=== PATIENT | female | born 1985 | race Caucasian/White ===

== ENCOUNTER 2020-07-07 22:26 | Emergency (ER) | payer BC, SELFPAY ==
[2020-07-07 22:28] VITALS: BP 148/96; PULSE 72; RESP 18; TEMP 36.8; O2SAT 97
--- NOTE | 2020-07-07 22:30 | DI.RAD_ITS ---
EXAM: XR FINGER LT INDEX CLINICAL HISTORY: trauma. TECHNIQUE: 2D digital imaging was performed. COMPARISON: No exams were available for comparison FINDINGS: Is a comminuted predominantly oblique fracture the in the distal half of the middle phalanx of the le ft index finger. Minimal dorsal angulation. Does not appear to involve the distal interphalangeal j oint. No radiopaque foreign body. Skin laceration noted. IMPRESSION: Comminuted minimally angulated fracture of the distal half of the middle phalanx of the index finger. DATA REPOSITORY: RADIATION DOSE DELIVERED:
--- NOTE | 2020-07-07 22:31 | W.ED.GENAD ---
Discharge Plan Discharge Details Chief Complaint: Laceration Primary Care Provider: Cyrus Rosen ED Provider: Tamiko Gomez Home Meds and New Rx's Prescriptions: No Action epinephrine [EpiPen 2-René] 0.3 MG/0.3 ML auto-injector 0.3 mg IM PRN RF: 0 fluoxetine 20 MG capsule 20 mg PO DAILY Qty: 90 RF: 4 terconazole [Terazol 7] 45 GM cream 45 gm VG HS Qty: 1 RF: 0 fluconazole [Diflucan] 150 MG tablet 150 mg PO ONCE Qty: 1 RF: 0 amoxicillin 500 MG tablet 500 mg PO TID Qty: 15 RF: 0 clotrimazole-betamethasone [Lotrisone] 15 GM cream 15 gm Topical BID Qty: 1 RF: 0 HPI General Mode of arrival: ambulatory. Date/Time Provider Initiated Documentation: 07/07/20 22:27. Limitations to Documentation: no limitations. Information obtained by: patient and RN notes reviewed. Related Data Home Medications Medication Instructions Recorded Confirmed epinephrine [EpiPen 2-René] 0.3 mg IM PRN 02/24/16 05/01/17 fluoxetine 20 mg PO DAILY #90 tab-cap 06/16/16 fluconazole [Diflucan] 150 mg PO ONCE #1 tab-cap 09/30/17 terconazole [Terazol 7] 45 gm VG HS #1 tube 09/30/17 amoxicillin 500 mg PO TID #15 tab-cap 11/04/17 clotrimazole-betamethasone 15 gm TOPICAL BID #1 tube 11/04/17 [Lotrisone Cream] Previous Rx's Medication Instructions Recorded fluconazole [Diflucan] 150 mg PO ONCE #1 tab-cap 09/30/17 terconazole [Terazol 7] 45 gm VG HS #1 tube 09/30/17 amoxicillin 500 mg PO TID #15 tab-cap 11/04/17 clotrimazole-betamethasone 15 gm TOPICAL BID #1 tube 11/04/17 [Lotrisone Cream] Allergies Allergy/AdvReac Type Severity Reaction Status Date / Time venom-honey bee Allergy FACIAL Unverified 11/04/17 14:00 SWELLING [facility] Surgical History (Updated 08/15/18 @ 22:57 by Janene Quinteros) Oral surgery: wisdom teeth. Family History Grandfather Heart disease Grandmother Breast cancer Maternal Cousin Breast cancer Grandfather Liver cancer Other Personal history of malignant neoplasm Social History Smoking/Tobacco Use Status: Current every day Smoking risk assessment performed?: Yes Alcohol Intake: current Alcohol Intake frequency: a few times a month Drug use: Daily Substance use type: marijuana Do you feel safe at home: Yes Do you feel safe in your relationship?: Yes
--- NOTE | 2020-07-07 22:32 | ED.GENADUL_ITS ---
Discharge Plan Disposition Patient Disposition: HOME Condition: Stable Discharge Details Clinical Impression: Open fracture of distal phalanx of left index finger Primary Care Provider: Cyrus Rosen ED Provider: Tamiko Gomez Home Meds and New Rx's Prescriptions: New cephalexin 500 mg capsule 500 mg PO QID Qty: 20 RF: 0 Continued epinephrine [EpiPen 2-René] 0.3 MG/0.3 ML auto-injector 0.3 mg IM PRN RF: 0 fluoxetine 20 MG capsule 20 mg PO DAILY Qty: 90 RF: 4 Discontinued terconazole [Terazol 7] 45 GM cream 45 gm VG HS Qty: 1 RF: 0 fluconazole [Diflucan] 150 MG tablet 150 mg PO ONCE Qty: 1 RF: 0 amoxicillin 500 MG tablet 500 mg PO TID Qty: 15 RF: 0 clotrimazole-betamethasone [Lotrisone] 15 GM cream 15 gm Topical BID Qty: 1 RF: 0 Discharge Instructions Instructions: Laceration (DC), Finger Fracture (ED) Additional Instructions: Keep your dressing clean and dry until your follow-up appointment with orthopedics on You can keep your finger elevated to reduce throbbing and swelling of possible throughout the day Take acetaminophen 650 mg 4 times daily if needed for pain can add ibuprofen 600 mg with food 4 times daily alternating the 2 if needed Return here sooner for new or worsening issues Your tetanus was updated in January 2016. Start cephalexin 500 mg 4 times daily tomorrow morning and complete entire course. Referrals: Rio Lafleur MD [ [facility] STAFF PHYSICIAN] - (Call Wednesday for a follow up appointment on July) Discharge Data Discharge Date/Time-TO BE ENTERED AT DEPARTURE: 07/08/20 00:30 Medical Decision Making Laceration from crush injury sustained on the interior door. Tendon sheath is disrupted but tendon appears intact. Full range of motion and strength to finger. Wound anesthetized using let, digital block with 1% lidocaine with good effect, wound is irrigated with copious amounts of normal saline no debris or foreign body noted, wound is closed using 10 sutures. It is well approximated Vaseline gauze and dry sterile dressing applied. Finger splint applied. Case was discussed with Dr. Lafleur who will see patient in follow-up outpatient Medical Records Medical records reviewed: Yes I reviewed the patient's medical records. HPI General Date/Time Provider Initiated Documentation: 07/07/20 22:27 . Limitations to Documentation: no limitations . Information obtained by: patient . HPI Narrative: Finger slammed in the anterior door, isolated injury to left index finger. jagged laceration to PIP. Related Data Home Medications Medication Instructions Recorded Confirmed epinephrine [EpiPen 2-René] 0.3 mg IM PRN 02/24/16 05/01/17 fluoxetine 20 mg PO DAILY #90 tab-cap 06/16/16 cephalexin 500 mg PO QID #20 cap 07/07/20 Previous Rx's Medication Instructions Recorded cephalexin 500 mg PO QID #20 cap 07/07/20 Allergies Allergy/AdvReac Type Severity Reaction Status Date / Time venom-honey bee Allergy FACIAL Unverified 11/04/17 14:00 SWELLING General Stated Complaint: Laceration STEFFI: 3 Review of Systems Musculoskeletal Musculoskeletal: Denies deformity, Reports arthralgias and Reports joint swelling Integumentary/Breasts Skin/Breast: Reports lesions Hematologic/Lymphatic Hematologic/Lymphatic: Denies easy bleeding and Denies easy bruising [facility] Surgical History (Updated 08/15/18 @ 22:57 by Janene Quinteros) Oral surgery: wisdom teeth. Family History Grandfather Heart disease Grandmother Breast cancer Maternal Cousin Breast cancer Grandfather Liver cancer Other Personal history of malignant neoplasm Social History Smoking/Tobacco Use Status: Current every day Smoking risk assessment performed?: Yes Alcohol Intake: current Alcohol Intake frequency: a few times a month Drug use: Daily Substance use type: marijuana Do you feel safe at home: Yes Do you feel safe in your relationship?: Yes Exam Const General: cooperative, acute distress moderate and anxious (crying) Nutritional Appearance: average body habitus Cardio Rate: regular rate Rhythm: regular rhythm (radial) Skin Trauma: laceration (left index finger, jagged lac over palmar side of PIP left index) and other (tendon sheath disrupted, tendon appears intact, able to fully bend finger) Other: able to fully bend finger, holding against resistance. bleeding con trolled. Neuro General: patient alert, patient awake and other (appears mildly intoxicated) Cognition: normal cognition Speech: speech normal Extrem Left upper extremity: hand Details: abnormal to inspection (lacerated left index), tendon exam abnormal (sheath lacerated), tenderness, swelling, abrasion (avulsion of skin, on dorsal side of finger. ) Location: of the 2nd digit, laceration and ecchymosis Course Vital Signs Vital signs: Vital Signs Temperature 36.8 C 07/07/20 22:28 Pulse 72 07/07/20 22:28 Respiratory Rate 18 07/07/20 22:28 Blood Pressure 148/96 H 07/07/20 22:28 Pulse Oximetry 97 07/07/20 22:28 Temperature 36.8 C 07/07/20 22:28 Temperature Source Temporal Artery Scan 07/07/20 22:28 Pulse 72 07/07/20 22:28 Respiratory Rate 18 07/07/20 22:28 Blood Pressure 148/96 H 07/07/20 22:28 Blood Pressure Position Sitting 07/07/20 22:28 Pulse Oximetry 97 07/07/20 22:28 Oxygen Delivery Method Room Air 07/07/20 22:28 Oxygen Flow Rate 0 07/07/20 22:28 Pain Level 8 07/07/20 22:28 Procedures Laceration Laceration 1: Site: hand (Index finger first PIP) Side (If applicable): left Size (cm): 4 Description: irregular Depth: involves tendon Local Anesthetic: Lidocaine 1% Amount of anesthesia used (mL): 6 Pre-repair: wound explored and irrigated extensively Skin layer closed with: nylon Size (cm): 4-0 Number of sutures: 10 Technique: simple, interrupted
[2020-07-07] MEDS: Lidocaine 1% Multi-Dose 50 ML VIAL (22:48)
[2020-07-07] MEDS: Lidocaine/Epinephri/Tetracaine Topical Gel 3 ML (22:49)
--- NOTE | 2020-07-07 22:57 | DI.VRAD_ITS ---
PROCEDURE INFORMATION: Exam: XR Left Finger(s) Exam date and time: 07/07/2020 10:32 PM Age: 35 years old Clinical indication: Injury or trauma; Other: Finger shut in door; Blunt trauma (contusions or hematomas); Left; Injury date: 07/07/20; Injury details: Shut index finger in door TECHNIQUE: Imaging protocol: XR Left fingers. Views: Minimum 2 views. COMPARISON: No relevant prior studies available. FINDINGS: Bones/joints: Comminuted but essentially nondisplaced minimally angulated fracture of the distal aspect of the middle phalanx of the index finger. Soft tissues: Soft tissue gas adjacent to the metacarpophalangeal joint compatible with soft tissue laceration. IMPRESSION: 1. Comminuted but essentially nondisplaced minimally angulated fracture of the distal aspect of the middle phalanx of the index finger. 2. Soft tissue gas adjacent to the metacarpophalangeal joint compatible with soft tissue laceration. Dictated and Authenticated by: Gautam Madison MD. Ordering:DOUGLAS Morrison MD
[2020-07-07] MEDS: ceFAZolin 1 GM/50 ML BAG IVPB (23:53)
[2020-07-08] MEDS: Ketorolac 30 MG/ML VIAL IVP (00:20)
[2020-07-08 00:29] VITALS: BP 103/75; PULSE 71; RESP 16; O2SAT 97
== END 2020-07-08 00:30 | disposition home or self-care (01) ==
PROVIDERS: Emergency Provider Nurse Practitioner Acute Care; PCP Nurse Practitioner Family
DX: S67.191A Crushing injury of left index finger, initial encounter (principal); S62.621B Displaced fracture of middle phalanx of left index finger, initial encounter for open fracture; W23.0XXA Caught, crushed, jammed, or pinched between moving objects, initial encounter
CPT/HCPCS: 12002; 26720; 96365; 96375; 99282; 73140; 99281; J0690; J1885

== ENCOUNTER 2020-07-09 18:56 | Emergency (ER) | payer BC, SELFPAY ==
--- NOTE | 2020-07-09 19:09 | ED.GENADUL_ITS ---
Discharge Plan Disposition Patient Disposition: HOME Condition: Stable Discharge Details Clinical Impression: Visit for wound check Primary Care Provider: Cyrus Rosen ED Provider: Tamiko Gomez Home Meds and New Rx's Prescriptions: No Action epinephrine [EpiPen 2-René] 0.3 MG/0.3 ML auto-injector 0.3 mg IM PRN RF: 0 fluoxetine 20 MG capsule 20 mg PO DAILY Qty: 90 RF: 4 cephalexin 500 mg capsule 500 mg PO QID Qty: 20 RF: 0 Discharge Instructions Instructions: Facial Laceration (ED) Additional Instructions: Keep wound clean and dry Continue to elevate finger to reduce swelling and pain Continue [id number] pain medications as previously prescribed Wear splint to protect Referrals: Rio Lafleur MD [ [facility] STAFF PHYSICIAN] - (Keep scheduled follow-up appointment on ) Discharge Data Discharge Date/Time-TO BE ENTERED AT DEPARTURE: 07/09/20 19:55 Medical Decision Making Wound check shows no obvious signs of infection skin is macerated at laceration site but wound edges are approximated and sutures intact Wound care per nursing bacitracin dry sterile dressing applied HPI General Mode of arrival: ambulatory . Date/Time Provider Initiated Documentation: 07/09/20 19:09 . Limitations to Documentation: no limitations . Information obtained by: patient . HPI Narrative: Patient presents for wound check of her left index finger which was sutured on Wednesday following a traumatic injury. She denies any fevers or drainage she states the swelling persist and the dressing felt tight so she loosened it and noticed that the skin at the laceration site was white . She called for advice and was advised to come to the emergency department if she was concerned and wanted evaluation. She has no other complaints Related Data Home Medications Medication Instructions Recorded Confirmed epinephrine [EpiPen 2-René] 0.3 mg IM PRN 02/24/16 05/01/17 fluoxetine 20 mg PO DAILY #90 tab-cap 06/16/16 cephalexin 500 mg PO QID #20 cap 07/07/20 Previous Rx's Medication Instructions Recorded cephalexin 500 mg PO QID #20 cap 07/07/20 Allergies Allergy/AdvReac Type Severity Reaction Status Date / Time venom-honey bee Allergy FACIAL Unverified 11/04/17 14:00 SWELLING General STEFIF: 3 Review of Systems All systems reviewed & are unremarkable except as noted in HPI and below PFSH Surgical History (Updated 08/15/18 @ 22:57 by Janene Quinteros) Oral surgery: wisdom teeth. Family History Grandfather Heart disease Grandmother Breast cancer Maternal Cousin Breast cancer Grandfather Liver cancer Other Personal history of malignant neoplasm Social History Smoking/Tobacco Use Status: Current every day Smoking risk assessment performed?: Yes Alcohol Intake: current Alcohol Intake frequency: a few times a month Drug use: Daily Substance use type: marijuana Do you feel safe at home: Yes Do you feel safe in your relationship?: Yes Exam Skin Lesions: other Rashes: no rashes Other: Left index finger remains edematous with ecchymosis. Sensation is intact distally tip but does mary with good cap refill, suture line with macerated skin wound is approximated and sutures are intact
[2020-07-09 19:17] VITALS: BP 141/70; PULSE 86; RESP 16; TEMP 36.3; O2SAT 97
[2020-07-09 19:54] VITALS: BP 141/70; PULSE 86; RESP 16; TEMP 36.3; O2SAT 97
== END 2020-07-09 19:55 | disposition home or self-care (01) ==
LOC: ER 19:17
PROVIDERS: Emergency Provider Nurse Practitioner Acute Care; PCP Nurse Practitioner Family
DX: S67.191A Crushing injury of left index finger, initial encounter (principal); W23.0XXA Caught, crushed, jammed, or pinched between moving objects, initial encounter; Z48.01 Encounter for change or removal of surgical wound dressing; R60.0 Localized edema

== ENCOUNTER 2020-07-11 11:03 | Outpatient (CLI) | payer BC, SELFPAY ==
--- NOTE | 2020-07-11 09:09 | DI.RAD_ITS ---
EXAM: XR FINGER LT INDEX CLINICAL HISTORY: LIF fracture. TECHNIQUE: 2D digital imaging was performed. COMPARISON: CR,XR XR FINGER LT INDEX from 07/07/2020 FINDINGS: Thin fracture lines at the level of the neck of the middle phalanx of the index finger again noted. No displacement. No radiopaque foreign body. No osseous lesions. IMPRESSION: Two transverse fracture lines at the neck of the middle phalanx, nondisplaced. DATA REPOSITORY: RADIATION DOSE DELIVERED:
== END 2020-07-11 11:23 ==
PROVIDERS: PCP Nurse Practitioner Family; Referring Provider Nurse Practitioner Family; Visit Provider Physician Assistant
DX: S62.603A Fracture of unspecified phalanx of left middle finger, initial encounter for closed fracture (principal)
CPT/HCPCS: 73140

== ENCOUNTER 2020-07-25 11:02 | Outpatient (CLI) | payer BC, SELFPAY ==
--- NOTE | 2020-07-25 10:00 | DI.RAD_ITS ---
EXAM: XR FINGER LT INDEX EXAM DATE/TIME: CLINICAL HISTORY: LIF fx. TECHNIQUE: 2D digital imaging was performed. COMPARISON: Comparison 07/11/2020 FINDINGS: BONES: There has been no change in alignment of the nondisplaced fracture involving the middle phalan x of the left index finger. No new fracture or dislocation is present. JOINTS: No dislocation is present. SOFT TISSUE: Normal. IMPRESSION: Stable fracture of the middle phalanx of the left index finger. DATA REPOSITORY: RADIATION DOSE DELIVERED:
== END 2020-07-25 11:22 ==
PROVIDERS: PCP Nurse Practitioner Family; Visit Provider Physician Assistant
DX: S62.621A Displaced fracture of middle phalanx of left index finger, initial encounter for closed fracture (principal)
CPT/HCPCS: 73140

== ENCOUNTER 2020-08-15 10:03 | Outpatient (CLI) | payer BC, SELFPAY ==
--- NOTE | 2020-08-15 09:30 | DI.RAD_ITS ---
EXAM: XR FINGER LT INDEX CLINICAL HISTORY: f/u of left index finger fracture TECHNIQUE: COMPARISON: CR XR FINGER LT INDEX from 07/25/2020 FINDINGS: Three views were obtained and show previously described fracture of middle phalanx of the index finge r with no gross interval change in alignment in comparison with previous films of July 25. IMPRESSION: RADIATION DOSE DELIVERED: Total DLP
== END 2020-08-15 10:23 ==
PROVIDERS: PCP Nurse Practitioner Family; Referring Provider Nurse Practitioner Family; Visit Provider Physician Assistant
DX: S62.623A Displaced fracture of middle phalanx of left middle finger, initial encounter for closed fracture (principal)
CPT/HCPCS: 73140

== ENCOUNTER 2020-11-05 10:14 | Outpatient (CLI) | payer BC, SELFPAY ==
--- NOTE | 2020-11-05 09:45 | DI.RAD_ITS ---
EXAM: XR FINGER LT INDEX CLINICAL HISTORY: follow up TECHNIQUE: COMPARISON: CR XR FINGER LT INDEX from 08/15/2020 FINDINGS: Three views were obtained and show previously described nondisplaced fracture of the middle phalanx o f the index finger, no gross interval change in alignment and there appears to be some progression of healing since the previous examination August 15, the fracture plane is only minimally visible at this time. IMPRESSION: RADIATION DOSE DELIVERED: Total DLP
== END 2020-11-05 10:15 | disposition home or self-care (01) ==
LOC: DIORS 10:15
PROVIDERS: PCP Nurse Practitioner Family; Referring Provider Nurse Practitioner Family; Visit Provider Physician Assistant Surgical
DX: S62.621D Displaced fracture of middle phalanx of left index finger, subsequent encounter for fracture with routine healing (principal)
CPT/HCPCS: 73140

== ENCOUNTER 2021-02-12 18:58 | Outpatient (REF) | payer BC, SELFPAY ==
[2021-02-14 11:49] LABS: COVID-19 RT-PCR UVMMC Result Negative (Negative)
== END 2021-02-12 18:59 | disposition home or self-care (01) ==
LOC: LBN 18:58
PROVIDERS: PCP Nurse Practitioner Family; Visit Provider Nurse Practitioner Family
DX: Z20.822 Contact with and (suspected) exposure to COVID-19 (principal)
CPT/HCPCS: U0003

== ENCOUNTER 2021-02-19 13:06 | Emergency (ER) | payer BC, SELFPAY ==
--- NOTE | 2021-02-19 13:00 | RT.EKG_ITS ---
APPROVED REPORT Exam: Resting ECG Reason for Exam: sob Patient Location: E HR:82 bpm ECG Measurements Heart Rate 82 AXIS AZ 147 P 65 QRSd 94 QRS 57 QT 347 T 53 QTc 404 Conclusion Sinus rhythm...normal P axis, V-rate 60- 99
[2021-02-19 13:15] VITALS: BP 108/70; PULSE 110; RESP 20; TEMP 36.3; O2SAT 93
--- NOTE | 2021-02-19 13:39 | W.ED.GENAD ---
Discharge Plan Disposition Patient Disposition: HOME Condition: Improving Discharge Details Clinical Impression: Exacerbation of reactive airway disease Primary Care Provider: Cyrus Rosen ED Provider: Tyron Calles Home Meds and New Rx's Prescriptions: New prednisone 10 mg tablet 10 mg PO DAILY Qty: 45 RF: 0 sulfamethoxazole-trimethoprim [Bactrim DS] 800-160 mg tablet 1 tab PO BID 7 Days Qty: 14 RF: 0 guaifenesin [Mucinex] 600 mg tablet extended release 12hr 600 mg PO Q12H PRNQty: 10 RF: 0 Continued albuterol sulfate 90 mcg/actuation HFA aerosol inhaler 2 puff inhalation Q6H PRN (Reason: shortness of breath or wheezing) Qty: 6.7 RF: 0 epinephrine [EpiPen 2-René] 0.3 MG/0.3 ML auto-injector 0.3 mg IM PRN RF: 0 fluoxetine 20 MG capsule 20 mg PO DAILY Qty: 90 RF: 4 nicotine 21-14-7 mg/24 hr Patch, Td Daily, Sequential RF: 0 Discharge Instructions Instructions: Reactive Airways Disease (ED) Additional Instructions: Take prednisone and antibiotic as prescribed until finished. May continue use of albuterol inhaler. We will ask care management to make you a follow-up appointment in primary care clinic for recheck. Return to the emergency department for any acute concerns. Medical Decision Making 35-year-old female smoker presents with persistent cough, congestion, production of sputum over 1 weeks time. She was initially seen at urgent care on February 12 and has finished azithromycin Z-René and 5 days of 40 mg of prednisone. Today ongoing wheeze and persistent cough brought her to the ED. She arrives with a slightly elevated heart rate at triage, normalized while at rest, oxygenation of 93% and exam reveals diffuse end expiratory wheezing. Must rule out pneumonia, concomitant reactive airway disease. Patient IV access established, screening labs obtained, she is referred for chest x-ray, given parenteral steroids and DuoNeb updraft. Chest x-ray is without infiltrate or focal consolidation. Patient improving with treatment for reactive airway disease. Laboratories reveal a white count of 14, hematocrit 43, platelets 305. Chemistries unremarkable. HPI General Mode of arrival: ambulatory. Date/Time Provider Initiated Documentation: 02/19/21 13:08. Limitations to Documentation: no limitations. Information obtained by: patient. History of Present Illness 35 year old F presents to the emergency department with the chief complaint of Cough and shortness of breath, described as moderate, Quality is described as dull, and is localized to the chest. Patient reports no radiation. Patient started experiencing this day(s) and it has been intermittent. No relieving factors improve symptom(s), No exacerbating factors reported . Patient notes cough and shortness of breath. Patient did receive the following treatments prior to arrival, other (Albuterol) Related Data Home Medications Medication Instructions Recorded Confirmed epinephrine [EpiPen 2-René] 0.3 mg IM PRN 02/24/16 02/19/21 fluoxetine 20 mg PO DAILY #90 tab-cap 06/16/16 02/19/21 albuterol sulfate 90 mcg/actuation 2 puff INHALATION Q6H PRN #6.7 g 02/12/21 02/12/21 aerosol inhaler guaifenesin [Mucinex] 600 mg PO Q12H PRN #10 tab 02/19/21 nicotine patch 02/19/21 prednisone 10 mg PO DAILY #45 tab 02/19/21 sulfamethoxazole-trimethoprim 1 tab PO BID 7 Days #14 tab 02/19/21 [Bactrim DS] Previous Rx's Medication Instructions Recorded albuterol sulfate 90 mcg/actuation 2 puff INHALATION Q6H PRN #6.7 g 02/12/21 aerosol inhaler guaifenesin [Mucinex] 600 mg PO Q12H PRN #10 tab 02/19/21 prednisone 10 mg PO DAILY #45 tab 02/19/21 sulfamethoxazole-trimethoprim 1 tab PO BID 7 Days #14 tab 02/19/21 [Bactrim DS] Allergies Allergy/AdvReac Type Severity Reaction Status Date / Time venom-honey bee Allergy FACIAL Verified 02/12/21 16:48 SWELLING General Stated Complaint: RespSymp STEFFI: 3 Review of Systems Narrative: No syncope, no chest pain. Coughing up sputum at home. Finished prednisone and azithromycin. 8 systems reviewed and otherwise negative [facility] Surgical History Oral surgery: wisdom teeth. Family History Grandfather Heart disease Grandmother Breast cancer Maternal Cousin Breast cancer Grandfather Liver cancer Other Personal history of malignant neoplasm Social History Smoking/Tobacco Use Status: Current every day Smoking risk assessment performed?: Yes Alcohol Intake: current Alcohol Intake frequency: a few times a month Drug use: Daily Substance use type: marijuana Current gender identity: female Do you feel safe at home: Yes Do you feel safe in your relationship?: Yes Exam Narrative Exam Narrative: GEN: awake, alert, oriented 3. Pleasant, well groomed, interactive. HEAD: Normocephalic, atraumatic ENT: Mucous membranes dry, oropharynx unremarkable, External ear exam unremarkable EYES: PERRL, EOMI NECK: Full ROM, no MARY, no menigismus CHEST/RESP: Nontender, bilateral end expiratory wheeze CARDIOVASCULAR: RRR, no murmur, rub richard. 2+ Rad pulse bilateral ABDOMEN: Soft, nontender, no mass. +Bowel sounds EXT: Full ROM, no edema, no rash Neuro: Grossly normal neurologic exam, conversant, interactive. Psych: Speech fluent, thoughts congruent, affect normal Course Vital Signs Vital signs: Vital Signs Temperature 36.3 C L 02/19/21 13:15 Pulse 110 H 02/19/21 13:15 Respiratory Rate 20 02/19/21 13:15 Blood Pressure 108/70 02/19/21 13:15 Pulse Oximetry 93 02/19/21 13:15 Temperature 36.3 C L 02/19/21 13:15 Temperature Source Temporal Artery Scan 02/19/21 13:15 Pulse 110 H 02/19/21 13:15 Respiratory Rate 20 02/19/21 13:15 Respiratory Effort 02/19/21 13:18 Blood Pressure 108/70 02/19/21 13:15 Blood Pressure Position Supine 02/19/21 13:15 Pulse Oximetry 93 02/19/21 13:15 Oxygen Delivery Method Room Air 02/19/21 13:15 Oxygen Flow Rate 0 02/19/21 13:15
--- NOTE | 2021-02-19 13:58 | DI.RAD_ITS ---
Exam(s) XR CHEST 2V PA LATERAL EXAM: XR CHEST 2V PA LATERAL CLINICAL HISTORY: Cough, SOB. TECHNIQUE: 2D digital imaging was performed. COMPARISON: No exams were available for comparison FINDINGS: Heart size is normal. The mediastinum is not widened. Lungs are clear. No infiltrates nor pleural effusions. IMPRESSION: No acute pulmonary findings. DATA REPOSITORY: RADIATION DOSE DELIVERED:
[2021-02-19] MEDS: Normal Saline 1,000 ML 1000 ML IV (14:10)
[2021-02-19] MEDS: methylPREDNISolone SUCC 125 MG VIAL IVP (14:11)
[2021-02-19 14:21] LABS: Abs Immature Grans 0.03 10^3/uL (0.0-0.06); Absolute Basophil Count 0.06 10^3/uL (0.0-0.2); Absolute Monocyte Count 0.77 10^3/uL (0.1-0.8); Basophils % 0.4; Eosinophils % 0.5; HCT 43.9 % (36.0-46.0); HGB 15.5 g/dL (11.2-15.7); Immature Grans % 0.2; Lymphocytes % 17.2; MCH 32.8 pg (27.0-33.0); MCHC 35.3 % (32.0-36.0); MPV 9.3 fL (8.0-11.0); Monocytes % 5.2; Neutrophils % 76.5; Nucleated RBC 0 %; Platelet Count 305 10^3/uL (130-400); RBC 4.72 10^6/uL (3.93-5.22); RDW 12.2 % (11.7-14.6); RDW-SD 42.1 fL; WBC 14.74 10^3/uL (4.4-10.8)
[2021-02-19 14:24] LABS: Absolute Eosinophil Count 0.07 10^3/uL (0.0-0.7); Absolute Lymphocyte Count 2.54 10^3/uL (1.2-3.4); Absolute Neutrophil Count 11.28 10^3/uL (1.2-6.7)
[2021-02-19 14:37] LABS: ALT 29 U/L (14-59); AST 16 U/L (15-37); Alkaline Phosphatase 87 U/L (46-116); Anion Gap 9.3 mmol/L (3-11); BUN 13 mg/dL (7-18); Bilirubin, Total 0.4 mg/dL (0.2-1.0); CO2 26.7 mmol/L (21.0-32.0); CREATININE 0.7 mg/dL (0.55-1.02); Calcium 9.8 mg/dL (8.5-10.1); Chloride 104 mmol/L (98-107); Glucose 154 mg/dL (74-106); Potassium 3.5 mmol/L (3.5-5.1); Sodium 140 mmol/L (136-145); Total Protein 7.9 g/dL (6.4-8.2)
[2021-02-19] MEDS: Albuterol/Ipratropium 3 ML UPD VIAL UPD (14:45)
[2021-02-19 15:04] VITALS: BP 98/64; PULSE 86; RESP 18; TEMP 36.6; O2SAT 95
[2021-02-19 16:43] VITALS: BP 115/76; PULSE 78; RESP 16; TEMP 36.7; O2SAT 95
== END 2021-02-19 15:22 | disposition home or self-care (01) ==
PROVIDERS: Emergency Provider Emergency Medicine; PCP Nurse Practitioner Family
DX: J45.901 Unspecified asthma with (acute) exacerbation (principal)
CPT/HCPCS: 36415; 80053; 93005; 94640; 96361; 96374; 99284; 71046; 85025; 93010; J2930; J7620

== ENCOUNTER 2021-04-17 15:17 | Outpatient (REF) | payer BC, SELFPAY ==
--- NOTE | 2021-04-17 14:45 | PAPFT_PTH ---
PATIENT: Kalli De La Rosa LOC: [facility] U#:[id number] AGE/SX: 36/F ROOM: RE04/17/[address]: MARYBETH Marquez : 1985 BED: DIS: 04/17/2021 SPEC #: [id number] RECD: 04/17/21 18:30 STATUS: JAUN REQ #: [id number] NESTOR: 04/17/21 14:[address]: Lashay Marcano DEPT: [facility] Cytology RECD BY: Ella Bautista ENTERED: 04/17/21 18:30 SP TYPE: PAPFT OTHR DR: Cyrus Rosen Tissues: 1 - CX/ENDOCX FOR PAP SMEARS Procedures: PAP THIN PREP/UVM Screening HPV DNA PROBE Comments: [id number]
== END 2021-04-17 15:18 | disposition home or self-care (01) ==
LOC: LBN 15:17
PROVIDERS: PCP Nurse Practitioner Family; Visit Provider Nurse Practitioner Family
DX: Z12.4 Encounter for screening for malignant neoplasm of cervix (principal); Z11.51 Encounter for screening for human papillomavirus (HPV)
CPT/HCPCS: 88142; 87624

== ENCOUNTER 2021-04-21 03:51 | Outpatient (RCR) | payer BC, SELFPAY ==
--- NOTE | 2021-04-21 16:00 | HOLTER_ITS ---
APPROVED REPORT Conclusion This is a 48-hour Holter monitor ordered for symptoms of palpitations Rhythm throughout was sinus. Average heart rate was 86. Minimum was 50, maximum 130 There were 4 isolated PVCs, one ventricular couplet There were rare atrial premature beats, a total of 20 in 48 hours. There were 3 atrial pairs There was no atrial fibrillation, no high-grade AV block, no pauses greater than 3 seconds No patient symptoms were reported
== END 2021-05-01 23:59 | disposition home or self-care (01) ==
LOC: RT 03:51
PROVIDERS: PCP Nurse Practitioner Family; Visit Provider Nurse Practitioner Family
DX: R00.2 Palpitations (principal)
CPT/HCPCS: 93225; 93226

== ENCOUNTER 2021-08-08 12:20 | Outpatient (REF) | payer BC, SELFPAY ==
[2021-08-10 19:32] LABS: COVID-19 RT-PCR UVMMC Result Negative (Negative)
== END 2021-08-08 12:21 | disposition home or self-care (01) ==
LOC: NCHCN 12:20
PROVIDERS: PCP Nurse Practitioner Family; Visit Provider Nurse Practitioner Family
DX: Z20.822 Contact with and (suspected) exposure to COVID-19 (principal)
CPT/HCPCS: U0003

== ENCOUNTER 2021-08-25 15:16 | Outpatient (REF) | payer BC, SELFPAY ==
[2021-08-25 21:36] LABS: HCT 43.5 % (36.0-46.0); MCHC 34.5 % (32.0-36.0); MCV 95.8 fL (80-95); MPV 11.3 fL (8.0-11.0); Platelet Count 209 10^3/uL (130-400); RBC 4.54 10^6/uL (3.93-5.22); RDW 12.1 % (11.7-14.6); RDW-SD 42.7 fL; WBC 6.59 10^3/uL (4.4-10.8)
[2021-08-25 21:48] LABS: ALT 31 U/L (14-59); AST 22 U/L (15-37); Albumin 4.3 g/dL (3.4-5.0); Alkaline Phosphatase 72 U/L (46-116); Anion Gap 10.6 mmol/L (3-11); BUN 11 mg/dL (7-18); Bilirubin, Total 0.4 mg/dL (0.2-1.0); CO2 26.4 mmol/L (21.0-32.0); CREATININE 0.6 mg/dL (0.55-1.02); Calcium 9.2 mg/dL (8.5-10.1); Chloride 105 mmol/L (98-107); Glucose 126 mg/dL (74-106); Potassium 3.6 mmol/L (3.5-5.1); Sodium 142 mmol/L (136-145); TSH (W/Ref FT4) 3.38 uIU/mL (0.36-3.74); Total Protein 7.5 g/dL (6.4-8.2)
== END 2021-08-25 15:17 | disposition home or self-care (01) ==
LOC: NCHCN 15:16
PROVIDERS: PCP Nurse Practitioner Family; Visit Provider Family Medicine
DX: R00.2 Palpitations (principal)
CPT/HCPCS: 80053; 85027; 84443

== ENCOUNTER 2021-09-12 02:46 | Outpatient (CLI) | payer BC, SELFPAY ==
--- NOTE | 2021-11-14 08:22 | CER_ITS ---
Date of service: 11/14/21 Time of Service: 08:22 Cardiac Event Recorder Referring Provider:: Graciela Babin Indications:: Syncope Cardiac Event Note: This is a 14-day quality assurance monitor final, reportedly ordered for syncope. Predominant rhythm was sinus with an average heart rate of 88. Minimum was 49, maximum 144 There were very rare ventricular ectopic beats. There was one 5 beat run of nonsustained ventricular tachycardia, asymptomatic There were very rare atrial premature beats. A total of 10 self-limited atrial runs occurred. The longest of these was 5 beats in duration. These were also asymptomatic There was no atrial fibrillation, no high-grade AV block, no pauses greater than 3 seconds Multiple patient symptoms were reported. These generally corresponded to sinus rhythm and sinus tachycardia, rates from 95-1 20
== END 2021-09-12 02:47 | disposition home or self-care (01) ==
LOC: RT 02:46
PROVIDERS: PCP Nurse Practitioner Family; Visit Provider Family Medicine
DX: R55 Syncope and collapse (principal)
CPT/HCPCS: 93246

== ENCOUNTER 2023-01-05 08:33 | Emergency (ER) | payer OTHER, SELFPAY ==
[2023-01-05 08:38] VITALS: BP 113/76; PULSE 82; RESP 18; TEMP 36.6; O2SAT 99
--- NOTE | 2023-01-05 08:41 | ED.GENADUL_ITS ---
Discharge Plan Disposition Patient Disposition: Home Condition: Good Discharge Details Clinical Impression: Dizziness, Vertigo Primary Care Provider: Graciela Babin ED Provider: Sumit Denton Home Meds and New Rx's Prescriptions: New meclizine 25 mg tablet 25 mg PO TID PRN (Reason: dizziness) Qty: 30 0RF Continued epinephrine [EpiPen 2-René] 0.3 MG/0.3 ML auto-injector 0.3 mg IM PRN sertraline 50 mg tablet 50 mg PO DAILY Discharge Instructions Instructions: Vertigo (ED) Additional Instructions: You were seen in the emergency department for dizziness. We performed labs, EKG, and x-ray and these were unremarkable. Based off her exam you likely are experiencing peripheral vertigo. The exact type is not known. You can take the meclizine prescribed as needed for any dizziness or vertigo you are experiencing but realize it may make you a little bit sleepy so do not drive or operate machinery if you are going to take this. Return to the emergency department for any trouble walking, worsening symptoms, or any other concerns that you may have. Otherwise follow-up with your primary care doctor about this visit. Stand Alone Forms: Work Release Referrals: Graciela Babin [Primary Care Provider] - 1 week Discharge Data Discharge Physician: Sumit Denton Medical Decision Making 37-year-old female presents with dizziness. Based off symptoms likely represent peripheral vertigo. Symptoms have been going on for months and intermittently get worse. This further supports the diagnosis. Neurologic exam is unremarkable and NIH score is 0 and she is ambulatory here without any neurodeficits. No role for CT imaging of the head and I do not think this represents stroke. Certainly would be well outside the window of any intervention for any stroke treatment regardless given the long duration of her symptoms. She also does not have any other stroke risk factors. She is worried it could be related to her heart which is why she primarily came in. I doubt this in the context of no chest pain or shortness of breath. Will get EKG and cardiac enzymes to rule out arrhythmia or any myositis but I think that these are much less likely. Will get chest x-ray to rule out pneumonia or pneumothorax. Will check CBC to look for anemia. We will get broad labs look for electrolyte or metabolic derangements that could be contributing to her symptoms. Will treat with meclizine. Will await initial testing and reevaluate after meclizine administration. 1007 Labs, EKG, chest x-ray unremarkable. Symptoms improved. Will discharge with return precautions and primary care follow-up. Medical Records Medical records reviewed: Yes I reviewed the patient's medical records. Imaging Data Radiologic Study: Attestation: I personally reviewed and interpreted this imaging study as follows: Imaging: X-Ray (chest) My impression: Chest x-ray unremarkable Lab Data Lab results reviewed: Yes I reviewed the patient's lab results. Labs: Labs grossly unremarkable ECG Data Attestation: I personally reviewed and interpreted this ECG (s) as follows: Interpretation: Sinus bradycardia. Rate of 55. Normal axis. Normal NH intervals and other intervals. No ST or T wave changes. Otherwise unremarkable EKG. HPI General Mode of arrival: ambulatory . Date/Time Provider Initiated Documentation: 01/05/23 08:40 . Limitations to Documentation: no limitations . Information obtained by: patient . HPI Narrative: 37-year-old female presents with dizziness and feeling off. Says she started sertraline a few months ago for anxiety and depression. Not sure if this is related. Over this time she has been having some dizziness. She says it happens when she sometimes turns her head or moves in a weird way. Gets a anthony le dizzy and says she just feels off in her chest. Denies any chest pain or shortness of breath. She just feels very off balance when these episodes happen but denies any other symptoms. No headache or neck pain. No recent injuries. Symptoms have been going on for about 2 months. Denying any other complaints presently. Related Data Home Medications Medication Instructions Recorded Confirmed epinephrine 0.3 mg/0.3 mL 0.3 mg IM PRN 02/24/16 01/05/23 injection, auto-injector (EpiPen 2-René) meclizine 25 mg tablet 25 mg PO TID PRN dizziness #30 tabs 01/05/23 sertraline 50 mg tablet 50 mg PO DAILY 01/05/23 01/05/23 Previous Rx's Medication Instructions Recorded meclizine 25 mg tablet 25 mg PO TID PRN dizziness #30 tabs 01/05/23 Allergies Allergy/AdvReac Type Severity Reaction Status Date / Time venom-honey bee Allergy FACIAL Verified 01/05/23 08:40 SWELLING General Stated Complaint: Dizzy/Sync STEFFI: 3 Review of Systems Constitutional Constitutional: Denies chills, Denies fever(s) and Denies headache(s) Eyes Eyes: Denies change in vision ENT Ears, Nose, Mouth, and Throat: Reports vertigo, Reports dizziness, Denies headache(s) and Denies odynophagia Cardiovascular Cardiovascular: Denies chest pain and Denies dyspnea Respiratory Respiratory: Denies dyspnea Gastrointestinal Gastrointestinal: Denies abdominal pain, Denies diarrhea, Denies nausea, Denies odynophagia and Denies vomiting Genitourinary Genitourinary: Denies dysuria Musculoskeletal Musculoskeletal: Denies myalgias Integumentary/Breasts Skin/Breast: Denies changing lesions Neurologic Neurologic: Denies behavioral changes, Reports vertigo, Reports dizziness and Denies headache(s) Psychiatric Psychiatric: Denies behavioral changes Endocrine Endocrine: Denies heat intolerance Hematologic/Lymphatic Hematologic/Lymphatic: Denies lymphadenopathy PFSH All Active Problems (Updated 01/05/23 @ 09:47 by Sumit Denton MD) Dizziness (Acute) Vertigo (Acute) Exacerbation of reactive airway disease (Acute) Fracture of middle phalanx of left index finger (Acute 07/07/20) Asymmetric tonsils (Acute) LPRD (laryngopharyngeal reflux disease) (Acute) Snoring (Acute) Tinnitus, bilateral (Acute) Tobacco abuse (Acute) Abnormal auditory perception (Acute) Globus sensation (Acute) Alcohol abuse (Acute) Cervical high risk human papillomavirus (HPV) DNA test positive (Acute 01/20/12) Cocaine dependence (Acute) daily Depressive disorder (Acute) History of oral surgery (Acute) wisdom teeth removed IUD surveillance (Acute 06/17/17) Surgical History Oral surgery: wisdom teeth. Family History Grandfather Heart disease Grandmother Breast cancer Maternal Cousin Breast cancer Grandfather Liver cancer Other Personal history of malignant neoplasm Social History Smoking/Tobacco Use Status: Current every day Tobacco Type: cigarettes Smoking risk assessment performed?: Yes Alcohol Intake: current Alcohol Intake frequency: a few times a month Drug use: Daily Substance use type: marijuana Current gender identity: female Do you feel safe at home: Yes Do you feel safe in your relationship?: Yes Exam Const General: cooperative Nutritional Appearance: average body habitus Orientation: alert, awake and oriented x3 HENMT Head: normal to inspection Ears: external ears normal Mouth: moist mucous membranes Eyes Pupils: PERRL EOM: EOM intact bilaterally and No nystagmus Neck Neck: full ROM and no tracheal deviation Chest Chest: normal inspection of the chest Resp Auscultation: clear to auscultation bilaterally Cardio Rate: regular rate Rhythm: regular rhythm GI Inspection: normal to inspection Palpation: soft, no guarding, not rigid and nontender Back/Spine/Pelvis Back: No no CVA tenderness Thoracic/Lumbar Spine: thoracic and lumbar spine normal to inspection Skin General skin exam: no rashes or lesions noted Neuro General: patient alert, patient awake and patient oriented x3 Cranial Nerves: CN's II-XI intact bilaterally, PERRL and no nystagmus Cognition: normal cognition Speech: speech normal Gait: normal gait Motor: muscle tone normal throughout, strength 5/5 throughout, no pronator drift and no movement abnormalities noted Sensory Exam: no sensory deficits noted Coordination: [id number] test normal, [id number] test normal and Romberg test normal Extrem General: normal to inspection Course Vital Signs Vital signs: Vital Signs Temperature 36.6 C 01/05/23 08:38 Pulse 82 01/05/23 08:38 Respiratory Rate 18 01/05/23 08:38 Blood Pressure 113/76 01/05/23 08:38 Pulse Oximetry 99 01/05/23 08:38 Temperature 36.6 C 01/05/23 08:38 Temperature Source Temporal Artery Scan 01/05/23 08:38 Pulse 82 01/05/23 08:38 Respiratory Rate 18 01/05/23 08:38 Respiratory Effort Normal, Non-Labored 01/05/23 08:39 Blood Pressure 113/76 01/05/23 08:38 Pulse Oximetry 99 01/05/23 08:38 Oxygen Delivery Method Room Air 01/05/23 08:38 Oxygen Flow Rate 0 01/05/23 08:38 PAWSS Have you Been Recently Intoxicated or Drunk Within the Last 30 days?: No Have you Ever Experienced Previous Episodes of Alcohol Withdrawal?: No Have you ever Experienced Withdrawal Seizures?: No Have you ever Experienced Delirium Tremens(DT)s?: No Have you ever undergone Alcohol Rehabilitation Treatment (i.e, inpt ot outpatient treatment programs)?: No Have you ever Experienced Blackouts?: No Have you ever Combined Alcohol with other Downers within the last 90 days?: No Have you ever Combined Alcohol with any other Substance of Abuse during the last 90 days?: No Positive Blood Alcohol level on Presentation? [PCS.BAL]: No Evidence of Increased Autonomic Activity (i.e. HR>120, tremor, sweating, agitation, nausea)?: No Result: 0
--- NOTE | 2023-01-05 08:45 | DI.RAD_ITS ---
Exam(s) XR CHEST 2V PA LATERAL EXAM: XR CHEST 2V PA LATERAL CLINICAL HISTORY: dizziness TECHNIQUE: 2D digital imaging was performed of the chest. Two images were obtained. PA and lateral views were obtained. COMPARISON: CR XR CHEST 2V PA LATERAL from 02/19/2021 FINDINGS: MEDIASTINUM: Normal. HEART: Normal. PULMONARY VASCULATURE: Normal. LUNGS: Clear. PLEURAL SPACE: No pleural effusion or pneumothorax. BONE:Within normal limits for the patient's age. OTHER FINDINGS:Normal. IMPRESSION: No acute pulmonary findings. DATA REPOSITORY: RADIATION DOSE DELIVERED:
--- NOTE | 2023-01-05 09:00 | RT.EKG_ITS ---
APPROVED REPORT Exam: Resting ECG Reason for Exam: dizziness Patient Location: E HR:51 bpm ECG Measurements Heart Rate 51 AXIS HI 162 P 62 QRSd 92 QRS 58 QT 398 T 39 QTc 367 Conclusion Sinus bradycardia...rate< 60
[2023-01-05] MEDS: Meclizine 25 MG TAB PO (09:14)
[2023-01-05 09:24] LABS: Abs Immature Grans 0.01 10^3/uL (0.0-0.06); Absolute Basophil Count 0.05 10^3/uL (0.0-0.2); Absolute Eosinophil Count 0.11 10^3/uL (0.0-0.7); Absolute Lymphocyte Count 2.92 10^3/uL (1.2-3.4); Absolute Monocyte Count 0.48 10^3/uL (0.1-0.8); Basophils % 0.6; Eosinophils % 1.3; HCT 41.3 % (36.0-46.0); HGB 14.4 g/dL (11.2-15.7); Immature Grans % 0.1; Lymphocytes % 34.1; MCH 32.4 pg (27.0-33.0); MCHC 34.9 % (32.0-36.0); MCV 93 fL (80-95); MPV 9.4 fL (8.0-11.0); Monocytes % 5.6; Neutrophils % 58.3; Platelet Count 231 10^3/uL (130-400); RBC 4.44 10^6/uL (3.93-5.22); RDW 12.5 % (11.7-14.6); RDW-SD 42.9 fL; WBC 8.57 10^3/uL (4.4-10.8)
[2023-01-05 09:42] LABS: ALT 34 U/L (14-59); AST 21 U/L (15-37); Albumin 4.5 g/dL (3.4-5.0); Alkaline Phosphatase 69 U/L (46-116); Anion Gap 8.3 mmol/L (3-11); BUN 14 mg/dL (7-18); Bilirubin, Total 0.7 mg/dL (0.2-1.0); CO2 27.7 mmol/L (21.0-32.0); CREATININE 0.8 mg/dL (0.55-1.02); Calcium 9.7 mg/dL (8.5-10.1); Chloride 104 mmol/L (98-107); Estimated GFR 98.48 (mL/min/1.73m2); Glucose 107 mg/dL (74-106); Magnesium 2.1 mg/dL (1.8-2.4); Potassium 3.6 mmol/L (3.5-5.1); Sodium 140 mmol/L (136-145); Troponin I < 50 ng/L (<or=60)
[2023-01-05 09:48] VITALS: RESP 18
[2023-01-05 10:05] VITALS: BP 116/70; PULSE 80; RESP 16; O2SAT 99
== END 2023-01-05 10:15 | disposition home or self-care (01) ==
PROVIDERS: Emergency Provider Student in an Organized Health Care Education/Training Program; PCP Nurse Practitioner Family
DX: R42 Dizziness and giddiness (principal)
CPT/HCPCS: 36415; 80053; 93005; 99284; 71046; 83735; 84484; 85025; 93010

== ENCOUNTER → 2023-03-24 15:28 | Outpatient (CLI) | payer OTHER, SELFPAY ==
--- NOTE | 2023-03-24 | DI.RAD_ITS ---
Exam(s) XR CHEST 2V PA LATERAL EXAM: XR CHEST 2V PA LATERAL CLINICAL HISTORY: COUGH, R05.8,? PNEUMONIA TECHNIQUE: 2D digital imaging was performed of the chest. Two images were obtained. PA and lateral views were obtained. COMPARISON: CR XR CHEST 2V PA LATERAL from 01/05/2023 FINDINGS: MEDIASTINUM: Normal. HEART: Normal. PULMONARY VASCULATURE: Normal. LUNGS: Clear. PLEURAL SPACE: No pleural effusion or pneumothorax. BONE:Within normal limits for the patient's age. OTHER FINDINGS:Normal. IMPRESSION: No acute pulmonary findings. DATA REPOSITORY: RADIATION DOSE DELIVERED:
== END ==
PROVIDERS: PCP Nurse Practitioner Family; Visit Provider Physician Assistant Medical
DX: R05.8 Other specified cough (principal)
CPT/HCPCS: 71046

== ENCOUNTER 2023-07-30 08:39 | Emergency (ER) | payer OTHER, SELFPAY ==
[2023-07-30 08:49] VITALS: BP 159/113; PULSE 85; TEMP 37.1; O2SAT 96
[2023-07-30 09:24] LABS: Bilirubin Small (Negative); Blood Trace-lysed (Negative); Clarity Clear (Clear); Glucose Negative (Negative); Ketones Trace mg/dL (Negative); Leukocyte Esterase Negative (Negative); Nitrite Negative (Negative); Specific Gravity >= 1.030 (1.005-1.025); Urobilinogen 0.2 mg/dL (Up to 0.2)
[2023-07-30] MEDS: Nicotine 21 MG/24 HR PATCH TD (09:34)
[2023-07-30 09:36] LABS: Bacteria Negative HPF (Negative); C & S Indicated? No; Casts 0-2 Hyaline LPF (Negative); Crystals Negative HPF (Negative); Epithelial Cells Few HPF (Negative); Mucus Trace (Negative); RBC 0-2 HPF (0-2)
[2023-07-30 09:37] VITALS: BP 122/85
[2023-07-30 09:38] LABS: *AMPHETAMINES SCREEN URINE Negative (Negative); *BARBITURATES SCREEN URINE Negative (Negative); *BENZODIAZEPINES SCREEN URINE Negative (Negative); Cannabinoids THC Positive (Negative); Cocaine Screen,Urine Negative (Negative); METHADONE URINE SCREEN Negative (Negative); OPIATES URINE SCREEN Negative (Negative); Tricyclic Antidepressants Negative (Negative)
--- NOTE | 2023-07-30 09:55 | W.ED.GENAD ---
Discharge Plan Disposition Patient Disposition: Home Condition: Stable Discharge Details Clinical Impression: Depressive disorder Primary Care Provider: Graciela Babin ED Provider: Ella Bell Home Meds and New Rx's Prescriptions: Continued epinephrine [EpiPen 2-René] 0.3 MG/0.3 ML auto-injector 0.3 mg IM PRN sertraline 50 mg tablet 50 mg PO DAILY meclizine 25 mg tablet 25 mg PO TID PRN (Reason: dizziness) Qty: 30 0RF Hold Instructions: Pt Stopped/Never Started Discharge Instructions Additional Instructions: Please follow-up with your primary care physician [facility] will be following so that you are able to establish closely with counseling Please return immediately if new or worsening thoughts present or if you would like reassessment Referrals: [facility] [employer] [Outside] - 1 day Graciela Babin [Primary Care Provider] - Medical Decision Making This 38-year-old female presents with report of anxiety, depression, and suicidal ideation, alcohol and marijuana dependence States this morning she was completely overwhelmed and feels like she needs help Has engaged in self-harm numerous times over the course of the past week, superficial laceration noted to left inner lower extremity and several superficial lacerations to bilateral upper extremities along the volar aspect She is neurovascularly intact Her tetanus is up-to-date Her talk screen is positive for marijuana, however last drink of alcohol was last evening around 8 Patient is alert and oriented x 4, cranial nerves II through XII intact, ambulatory into the emergency room and Does not make eye contact, pupils equal round reactive to light and accommodation, follows all basic commands, tearful, agitated, anxious, suicidal ideation with plan Denies homicidality Lungs clear to auscultation, cardiac rate rhythm regular Patient was evaluated by [facility] [employer] [facility], question and he feels that patient is able to be successfully safety plan at home Patient's is in the room and feels comfortable plan, she has a positive support system and does not currently endorse suicidality She will be scheduled very close in the outpatient setting for reassessment with [facility] HPI General Date/Time Provider Initiated Documentation: 07/30/23 09:05. HPI Narrative: 38-year-old female with history of polysubstance abuse including alcoholism presents with report of suicidal ideation. States she has had depression her whole life and 6 sertraline. States over the course of the past several weeks she has felt hopeless and had thoughts of wanting to take her own life. She states that she has been cutting for the past week, her arms and legs, she is a laceration on her left leg that was self-inflicted for patient. She denies any additional attempts to harm self, specifically she has not ingested any substances in an attempt to take her life. She denies chance of . She denies any fever or chills. She has children that she is worried about her currently with her mom. Last drink was last evening, she states she typically drinks 8 beers a day, she has no known history of alcohol withdrawal, last week she went several days without consuming any alcohol and states she had no withdrawal symptoms. She has been drinking beer for the past 12 years per patient. She denies any current auditory or visual hallucinations. She does state that she is heard voices for years per patient. Related Data Home Medications Medication Instructions Recorded Confirmed epinephrine 0.3 mg/0.3 mL 0.3 mg IM PRN 02/24/16 07/30/23 injection, auto-injector (EpiPen 2-René) meclizine 25 mg tablet 25 mg PO TID PRN dizziness #30 tabs 01/05/23 07/30/23 sertraline 50 mg tablet 50 mg PO DAILY 01/05/23 07/30/23 Previous Rx's Medication Instructions Recorded meclizine 25 mg tablet 25 mg PO TID PRN dizziness #30 tabs 01/05/23 Allergies Allergy/AdvReac Type Severity Reaction Status Date / Time venom-honey bee Allergy FACIAL Verified 07/30/23 09:00 SWELLING General Stated Complaint: PsychEval STEFFI: 2 PFSH All Active Problems (Updated 07/30/23 @ 12:45 by KRISTIAN Keller) Exacerbation of reactive airway disease (Acute) Fracture of middle phalanx of left index finger (Acute 07/07/20) Asymmetric tonsils (Acute) LPRD (laryngopharyngeal reflux disease) (Acute) Snoring (Acute) Tinnitus, bilateral (Acute) Tobacco abuse (Acute) Abnormal auditory perception (Acute) Globus sensation (Acute) Alcohol abuse (Acute) Cervical high risk human papillomavirus (HPV) DNA test positive (Acute 01/20/12) Cocaine dependence (Acute) daily Depressive disorder (Acute) History of oral surgery (Acute) wisdom teeth removed IUD surveillance (Acute 06/17/17) Surgical History Oral surgery: wisdom teeth. Family History Grandfather Heart disease Grandmother Breast cancer Maternal Cousin Breast cancer Grandfather Liver cancer Other Personal history of malignant neoplasm Social History Smoking/Tobacco Use Status: Current every day Tobacco Type: cigarettes Smoking risk assessment performed?: Yes Alcohol Intake: current Alcohol Intake frequency: a few times a month Drug use: Daily Substance use type: marijuana Housing: house Current gender identity: female Do you feel safe at home: No Do you feel safe in your relationship?: No Additional Social history: pt states she does not feel safe because she is dangerous. Course Vital Signs Vital signs: Vital Signs Temperature 37.1 C 07/30/23 08:49 Pulse 85 07/30/23 08:49 Blood Pressure 159/113 H 07/30/23 08:49 Pulse Oximetry 96 07/30/23 08:49 Temperature 37.1 C 07/30/23 08:49 Temperature Source Temporal Artery Scan 07/30/23 08:49 Pulse 85 07/30/23 08:49 Respiratory Effort Normal 07/30/23 08:55 Blood Pressure 122/85 07/30/23 09:37 Blood Pressure Position Supine 07/30/23 08:49 Pulse Oximetry 96 07/30/23 08:49 Oxygen Delivery Method Room Air 07/30/23 08:49 Oxygen Flow Rate 0 07/30/23 08:49 Lab/Test Results Lab/Test Results: Laboratory Tests Range/Units 07/30/23 09:00 Urine Color (Yellow) Yellow Urine Clarity (Clear) Clear Urine pH (5-8) 6.0 Ur Specific [place] (1.005-1.025) >= 1.030 H Urine Protein (Negative) mg/dL Trace H Urine Ketones (Negative) mg/dL Trace H Urine Blood (Negative) Trace-lysed H Urine Nitrite (Negative) Negative Urine Bilirubin (Negative) Small H Urine Urobilinogen (Up to 0.2) mg/dL 0.2 Ur Leukocyte Esterase (Negative) Negative Urine RBC (0-2) HPF 0-2 Urine WBC (0-5) HPF 3-5 Ur Epithelial Cells (Negative) HPF Few Urine Crystals (Negative) HPF Negative Urine Bacteria (Negative) HPF Negative Urine Casts (Negative) LPF 0-2 Hyaline Urine Mucus (Negative) Trace Ur Culture Indicated? No Urine Glucose (Negative) mg/dL Negative Urine Opiates Screen (Negative) Negative Urine Methadone Screen (Negative) Negative Ur Barbiturates Screen (Negative) Negative Ur Tricyclics Screen (Negative) Negative Ur Amphetamines Screen (Negative) Negative U Benzodiazepines Scrn (Negative) Negative Urine Cocaine Screen (Negative) Negative Ur THC Screen (Negative) Positive A POC- Test(urine) Negative PAWSS Have you Been Recently Intoxicated or Drunk Within the Last 30 days?: Yes Have you Ever Experienced Previous Episodes of Alcohol Withdrawal?: No Have you ever Experienced Withdrawal Seizures?: No Have you ever Experienced Delirium Tremens(DT)s?: No Have you ever undergone Alcohol Rehabilitation Treatment (i.e, inpt ot outpatient treatment programs)?: No Have you ever Experienced Blackouts?: No Have you ever Combined Alcohol with other Downers within the last 90 days?: No Have you ever Combined Alcohol with any other Substance of Abuse during the last 90 days?: No Evidence of Increased Autonomic Activity (i.e. HR>120, tremor, sweating, agitation, nausea)?: No Result: 1
[2023-07-30] MEDS: Ibuprofen 600 MG TAB PO (12:12)
[2023-07-30 12:54] VITALS: BP 117/75; PULSE 68; RESP 18; O2SAT 98
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
== END 2023-07-30 12:59 | disposition home or self-care (01) ==
PROVIDERS: Emergency Provider Physician Assistant; PCP Nurse Practitioner Family
DX: F32.9 Major depressive disorder, single episode, unspecified (principal); F10.10 Alcohol abuse, uncomplicated; F12.90 Cannabis use, unspecified, uncomplicated
CPT/HCPCS: 00123; 80307; 81025; 96127; 99285; 81003; 81015; 94640; 94668; 99283

== ENCOUNTER 2023-09-03 15:15 | Emergency (ER) | payer OTHER, SELFPAY ==
[2023-09-03 15:28] VITALS: BP 115/80; PULSE 101; RESP 16; O2SAT 100
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
[2023-09-03 19:26] LABS: Abs Immature Grans 0.03 10^3/uL (0.0-0.06); Absolute Basophil Count 0.05 10^3/uL (0.0-0.2); Absolute Eosinophil Count 0.02 10^3/uL (0.0-0.7); Absolute Lymphocyte Count 1.91 10^3/uL (1.2-3.4); Absolute Monocyte Count 0.38 10^3/uL (0.1-0.8); Absolute Neutrophil Count 6.63 10^3/uL (1.2-6.7); Basophils % 0.6; Eosinophils % 0.2; HCT 42.5 % (36.0-46.0); HGB 14.8 g/dL (11.2-15.7); Immature Grans % 0.3; Lymphocytes % 21.2; MCH 33.1 pg (27.0-33.0); MCHC 34.8 % (32.0-36.0); MCV 95 fL (80-95); Monocytes % 4.2; Neutrophils % 73.5; Platelet Count 228 10^3/uL (130-400); RBC 4.47 10^6/uL (3.93-5.22); RDW 12.3 % (11.7-14.6); RDW-SD 42.8 fL; WBC 9.02 10^3/uL (4.4-10.8)
[2023-09-03 19:41] VITALS: BP 119/72; PULSE 83; RESP 16; TEMP 36.9; O2SAT 100
[2023-09-03 19:42] LABS: ETHANOL BLOOD 26.8 mg/dL (<10)
[2023-09-03 19:45] LABS: ALT 26 U/L (14-59); AST 19 U/L (15-37); Albumin 4.3 g/dL (3.4-5.0); Alkaline Phosphatase 59 U/L (46-116); Anion Gap 13.1 mmol/L (3-11); BUN 9 mg/dL (7-18); Bilirubin, Total 0.3 mg/dL (0.2-1.0); CO2 23.9 mmol/L (21.0-32.0); CREATININE 0.6 mg/dL (0.55-1.02); Calcium 9.2 mg/dL (8.5-10.1); Chloride 106 mmol/L (98-107); Estimated GFR 119.23 (mL/min/1.73m2); Glucose 108 mg/dL (74-106); Potassium 3.7 mmol/L (3.5-5.1); Sodium 143 mmol/L (136-145); Total Protein 7.9 g/dL (6.4-8.2)
[2023-09-03 19:46] LABS: *AMPHETAMINES SCREEN URINE Negative (Negative); *BARBITURATES SCREEN URINE Negative (Negative); *BENZODIAZEPINES SCREEN URINE Negative (Negative); Cannabinoids THC Positive (Negative); Cocaine Screen,Urine Negative (Negative); METHADONE URINE SCREEN Negative (Negative); OPIATES URINE SCREEN Negative (Negative)
[2023-09-03 19:47] LABS: Tricyclic Antidepressants Negative (Negative)
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
[2023-09-04] MEDS: Sertraline 50 MG TAB PO (08:11)
[2023-09-04] MEDS: Nicotine 21 MG/24 HR PATCH TD (09:57)
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
--- NOTE | 2023-09-04 11:55 | CMSP_ITS ---
Date of service: 09/04/23 Time of Service: 11:55 Care Management Safety Plan Status Status: Voluntary Reason for Wait Reason for Wait: Inpatient Admission Safety Plan Safety Plan: VOLUNTARY FOR INPATIENT PSYCHIATRIC STABILIZATION.? Patient is appropriate in all interactions since arriving at [facility]; Pt has demonstrated appropriate coping and communication skills, has articulated his or her needs and concerns and is fully engaged during staff interactions. Safety plan has been established with patient, and care team, to adhere to patient goals, identify restrictions based on behavioral status, address nutrition, and determine allowed personal belongings, tools for hygiene and personal care. Determine level of activity including ambulation, level of superv ision, visitors, and determine privileges based on behaviors and level of engagement by pt. SAFETY PLAN: 1. Will remain on suicide precautions, in paper clothes 2. Will remain in Zone B under direct supervision of one-on-one staff at all times provided by [employer]; PADMA, EXECUTIVE ASSISTANT TO GENERAL COUNSEL commercial fishing vessel operator. 3. May have paper cups, plates, finger foods as well as a cardboard spoon with which to eat meals. 4. Follow [facility] Management of the Admitted Behavioral Health Patient policy. 5. Shower available in Zone B without restriction. 6. Personal belongings-soft items permitted at RN discretion. 7. Visitors- spouse and parents, at RN discretion. 8. Activities: soft cart items approved per RN discretion. 9.? Bathroom available in Zone B without restriction. 10. Phone: limited to [facility] cordless phone at RN discretion. Due to VOLUNTARY status, if patient wishes to leave [facility], staff will contact [facility] Crisis Screener ([phone]) and On-Call Tool Crib Lead ([phone]) as soon as possible. In the event of elopement, notify [facility] Police ([phone]). Patient is currently voluntarily at [facility] and seeking inpatient admission when a bed becomes available. [facility] Frontline Plate Grainer Apprentice will continue seeking placement. Please contact the Sales Representative [employer] Tool Crib Lead ([phone]) and [facility] Plate Grainer Apprentice ([phone]) for any needed changes in the Safety Plan. Safety plan has been provided to interdepartmental care team.
--- NOTE | 2023-09-04 11:55 | PDOC.CMSAFE ---
Date of service: 09/04/23 Time of Service: 11:55 Care Management Safety Plan Status Status: Voluntary Reason for Wait Reason for Wait: Inpatient Admission Safety Plan Safety Plan: VOLUNTARY FOR INPATIENT PSYCHIATRIC STABILIZATION.? Patient is appropriate in all interactions since arriving at [facility]; Pt has demonstrated appropriate coping and communication skills, has articulated his or her needs and concerns and is fully engaged during staff interactions. Safety plan has been established with patient, and care team, to adhere to patient goals, identify restrictions based on behavioral status, address nutrition, and determine allowed personal belongings, tools for hygiene and personal care. Determine level of activity including ambulation, level of supervision, visitors, and determine privileges based on behaviors and level of engagement by pt. SAFETY PLAN: 1. Will remain on suicide precautions, in paper clothes 2. Will remain in Zone B under direct supervision of one-on-one staff at all times provided by [employer]; PADMA, MOVIE EXTRA senior cyber security analyst. 3. May have paper cups, plates, finger foods as well as a cardboard spoon with which to eat meals. 4. Follow [facility] Management of the Admitted Behavioral Health Patient policy. 5. Shower available in Zone B without restriction. 6. Personal belongings-soft items permitted at RN discretion. 7. Visitors- spouse and parents, at RN discretion. 8. Activities: soft cart items approved per RN discretion. 9.? Bathroom available in Zone B without restriction. 10. Phone: limited to [facility] cordless phone at RN discretion. Due to VOLUNTARY status, if patient wishes to leave [facility], staff will contact [facility] Crisis Screener ([phone]) and On-Call Paint Roller Assembler ([phone]) as soon as possible. In the event of elopement, notify [facility] Police ([phone]). Patient is currently voluntarily at [facility] and seeking inpatient admission when a bed becomes available. [facility] Frontline Dryer Operator will continue seeking placement. Please contact the Client Relations Representative Paint Roller Assembler ([phone]) and [facility] Dryer Operator ([phone]) for any needed changes in the Safety Plan. Safety plan has been provided to interdepartmental care team.
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
== END 2023-09-04 14:17 ==
PROVIDERS: Physician Assistant; Emergency Provider Emergency Medicine; PCP Nurse Practitioner Family
DX: T14.91XA Suicide attempt, initial encounter (principal); S51.812A Laceration without foreign body of left forearm, initial encounter; X78.9XXA Intentional self-harm by unspecified sharp object, initial encounter; W26.0XXA Contact with knife, initial encounter
CPT/HCPCS: 00123; 36415; 80053; 80307; 81025; 90471; 90715; 99285; 80320; 84703; 85025